=== PATIENT | male | born 1955 | race Two or more races ===

== ENCOUNTER 2018-07-19 13:41 | Inpatient (IN) | payer MEDICAID ==
[~2018-07-19] VITALS: Ht 167.6 cm; Wt 99.8 kg
[2018-07-19 15:25] LABS: CHLORIDE 107 mEq/L (98-107)
[2018-07-19 15:27] LABS: PARTIAL THROMBOPLASTIN TIME 26.8 sec (23.4-31.0); PROTHROMBIN TIME 10.1 sec (9.1-11.1)
[2018-07-19 15:29] LABS: ETHANOL BLOOD < 10 mg/dL
[2018-07-19 15:31] LABS: BASOPHILS % 0.4 % (0.0-2.0); EOSINOPHILS % 3.6 % (0.0-5.0); HEMATOCRIT. 40.6 % (42.0-52.0); HEMOGLOBIN. 13.9 g/dL (14.0-18.0); LYMPHOCYTES % 29.4 % (20.0-50.0); MEAN CORPUSCULAR HEMOGLOBIN 30.6 pg (28.0-32.0); MEAN CORPUSCULAR VOLUME 89.3 fL (80.0-94.0); MEAN PLATELET VOLUME 12.2 fl (7.4-10.4); MONOCYTES % 8.6 % (2.0-8.0); PLATELET 127 x1000/uL (130-400); RED BLOOD CELL COUNT 4.54 mill/uL (4.7-6.1); RED CELL DISTRIBUTION WIDTH 13.9 % (11.6-14.6)
[2018-07-19 15:34] LABS: LDL CHOLESTEROL 104 mg/dL (5-100)
[2018-07-19 15:35] LABS: CREATINE KINASE 163 IU/L (39-308)
[2018-07-19] MEDS ORDERED: CLOPIDOGREL 75MG TABLET PO ONE (16:15)
[2018-07-19] MEDS ORDERED: ASPIRIN 81MG TABLET PO ONE (16:45)
[2018-07-19] MEDS ORDERED: IOHEXOL-350 100 ML BOTTLE ONE (17:35)
[2018-07-19] MEDS ORDERED: AMLO10TA80 MT (18:12)
[2018-07-19] MEDS ORDERED: FURO20TA4 MT (18:12)
[2018-07-19] MEDS ORDERED: INDO50CA15 MT (18:12)
[2018-07-19] MEDS ORDERED: BACL20TA MT (18:12)
[2018-07-19] MEDS ORDERED: IBUP-2029 PO (18:12)
[2018-07-19] MEDS ORDERED: ASPI-1159 MT (18:12)
[2018-07-19] MEDS ORDERED: LORA10TA7 MT (18:12)
[2018-07-19] MEDS ORDERED: PROVENTIL (18:12)
[2018-07-19 21:22] VITALS: BP 156/103
[2018-07-19 21:50] VITALS: BP 156/103
[2018-07-19] MEDS ORDERED: CLONIDINE 0.1MG TABLET PO PRN (22:15)
[2018-07-19] MEDS ORDERED: DOCUSATE SODIUM 100MG CAPSULE PO PRN (22:15)
[2018-07-19] MEDS ORDERED: MAGNESIUM/ALUMINUM HYDROXIDE/SIMETHICONE 30ML UDC PO PRN (22:15)
[2018-07-19] MEDS ORDERED: IPRATROPIUM/ALBUTEROL 0.5-3(2.5)MG/3ML NEB INH PRN (22:15)
[2018-07-19] MEDS ORDERED: ONDANSETRON HCL 4MG/2ML INJ IV PRN (22:15)
[2018-07-19] MEDS ORDERED: HYDROCODONE/ACETAMINOPHEN 5/325MG TABLET PO PRN (22:15)
[2018-07-19] MEDS: METOPROLOL TARTRATE 25MG TABLET PO SCH (23:24)
[2018-07-20] VITALS: BP 145/98
[2018-07-20 00:19] LABS: CHLORIDE 105 mEq/L (98-107)
[2018-07-20] MEDS ORDERED: POTASSIUM CHLORIDE 20MEQ TABLET SR PO NR (00:45)
[2018-07-20 04:00] VITALS: BP 139/97
[2018-07-20] MEDS ORDERED: DEXTROSE 50% WATER 50ML SYRINGE IV PRN (05:00)
[2018-07-20] MEDS: BLOOD SUGAR DIAGNOSTIC STRIP TEST SCH ×4 (06:30→20:16)
[2018-07-20] MEDS: INSULIN LISPRO 100 UNITS/ML SUBCUT SCH ×4 (07:50→20:16)
[2018-07-20 08:00] VITALS: BP 118/82
[2018-07-20 08:38] LABS: LDL CHOLESTEROL 113 mg/dL (5-100)
[2018-07-20 08:40] LABS: CREATINE KINASE 118 IU/L (39-308); HDL CHOLESTEROL 40 mg/dL (40-59)
[2018-07-20 08:42] LABS: CREATINE KINASE MB FRACTION 1.4 ng/mL (0.5-3.6)
[2018-07-20] MEDS: ENOXAPARIN 30MG/0.3ML SYR SUBCUT SCH ×2 (08:53→20:15)
[2018-07-20] MEDS: METOPROLOL TARTRATE 25MG TABLET PO SCH ×2 (08:55→20:16)
[2018-07-20] MEDS ORDERED: ASPIRIN 81MG EC TABLET PO SCH (09:00)
[2018-07-20 09:47] LABS: BASOPHILS % 0.5 % (0.0-2.0); HEMATOCRIT. 40.7 % (42.0-52.0); HEMOGLOBIN. 13.7 g/dL (14.0-18.0); LYMPHOCYTES % 28.3 % (20.0-50.0); MEAN CORPUSCULAR HEMOGLOBIN 29.9 pg (28.0-32.0); MEAN CORPUSCULAR VOLUME 89.1 fL (80.0-94.0); MEAN PLATELET VOLUME 11.2 fl (7.4-10.4); MONOCYTES % 7.8 % (2.0-8.0); NEUTROPHILS % 59.4 % (40.0-76.0); PLATELET 142 x1000/uL (130-400); RED BLOOD CELL COUNT 4.57 mill/uL (4.7-6.1)
[2018-07-20 12:47] VITALS: BP 124/77
[2018-07-20 16:40] VITALS: BP 128/66
[2018-07-20 16:57] LABS: CREATINE KINASE 104 IU/L (39-308)
[2018-07-20 16:59] LABS: CREATINE KINASE MB FRACTION < 1.0 ng/mL (0.5-3.6)
[2018-07-20 20:04] VITALS: BP 156/91
[2018-07-20 20:21] LABS: T4 FREE 1.17 ng/dL (0.76-1.46)
[2018-07-20] MEDS: ACETAMINOPHEN 325MG TABLET PO PRN (20:45)
[2018-07-20 20:50] LABS: VITAMIN B12 SERUM 437 pg/mL (211-911)
[2018-07-20 20:55] LABS: FOLIC ACID (FOLATE) SERUM > 20.00 ng/mL (>5.38)
[2018-07-21 00:33] VITALS: BP 148/90
[2018-07-21 04:00] VITALS: BP 140/87
[2018-07-21] MEDS: BLOOD SUGAR DIAGNOSTIC STRIP TEST SCH ×4 (06:36→20:43)
[2018-07-21] MEDS: INSULIN LISPRO 100 UNITS/ML SUBCUT SCH ×4 (07:37→20:47)
[2018-07-21 07:44] LABS: BASOPHILS % 0.6 % (0.0-2.0); EOSINOPHILS % 4.8 % (0.0-5.0); HEMATOCRIT. 40.4 % (42.0-52.0); HEMOGLOBIN. 13.8 g/dL (14.0-18.0); LYMPHOCYTES % 32.9 % (20.0-50.0); MEAN CORPUSCULAR HEMOGLOBIN 30.2 pg (28.0-32.0); MEAN CORPUSCULAR VOLUME 88.6 fL (80.0-94.0); MEAN PLATELET VOLUME 11.4 fl (7.4-10.4); MONOCYTES % 8.2 % (2.0-8.0); NEUTROPHILS % 53.5 % (40.0-76.0); PLATELET 148 x1000/uL (130-400); RED BLOOD CELL COUNT 4.56 mill/uL (4.7-6.1); RED CELL DISTRIBUTION WIDTH 13.8 % (11.6-14.6)
[2018-07-21 08:00] VITALS: BP 142/93
[2018-07-21 08:00] LABS: CHLORIDE 106 mEq/L (98-107)
[2018-07-21] MEDS: ASPIRIN 325MG EC TABLET PO SCH (08:19)
[2018-07-21] MEDS: METOPROLOL TARTRATE 25MG TABLET PO SCH ×2 (08:19→20:47)
[2018-07-21] MEDS: ENOXAPARIN 30MG/0.3ML SYR SUBCUT SCH ×2 (08:20→20:47)
[2018-07-21 16:28] LABS: T4 FREE 1.23 ng/dL (0.76-1.46)
[2018-07-21 20:00] VITALS: BP 108/58
[2018-07-21] MEDS: ACETAMINOPHEN 325MG TABLET PO PRN (20:46)
[2018-07-21 23:55] LABS: CREATINE KINASE 76 IU/L (39-308)
[2018-07-21 23:56] LABS: CREATINE KINASE MB FRACTION < 1.0 ng/mL (0.5-3.6)
[2018-07-22] VITALS: BP 157/92
[2018-07-22 04:00] VITALS: BP 130/84
[2018-07-22] MEDS: BLOOD SUGAR DIAGNOSTIC STRIP TEST SCH ×2 (06:27→12:05)
[2018-07-22 06:38] LABS: BASOPHILS % 0.6 % (0.0-2.0); HEMATOCRIT. 40.5 % (42.0-52.0); HEMOGLOBIN. 13.9 g/dL (14.0-18.0); LYMPHOCYTES % 33.5 % (20.0-50.0); MEAN CORPUSCULAR HEMOGLOBIN 30.4 pg (28.0-32.0); MEAN CORPUSCULAR VOLUME 88.2 fL (80.0-94.0); MEAN PLATELET VOLUME 12.1 fl (7.4-10.4); MONOCYTES % 8.2 % (2.0-8.0); NEUTROPHILS % 53.7 % (40.0-76.0); PLATELET 146 x1000/uL (130-400); RED BLOOD CELL COUNT 4.59 mill/uL (4.7-6.1); RED CELL DISTRIBUTION WIDTH 13.9 % (11.6-14.6)
[2018-07-22 07:29] LABS: CHLORIDE 106 mEq/L (98-107)
[2018-07-22 07:40] LABS: CREATINE KINASE 71 IU/L (39-308)
[2018-07-22 07:42] LABS: CREATINE KINASE MB FRACTION < 1.0 ng/mL (0.5-3.6)
[2018-07-22] MEDS: INSULIN LISPRO 100 UNITS/ML SUBCUT SCH ×2 (07:50→12:05)
[2018-07-22 08:03] VITALS: BP 134/77
[2018-07-22] MEDS: ASPIRIN 325MG EC TABLET PO SCH (08:56)
[2018-07-22] MEDS: ENOXAPARIN 30MG/0.3ML SYR SUBCUT SCH (08:58)
[2018-07-22] MEDS: METOPROLOL TARTRATE 25MG TABLET PO SCH (08:59)
[2018-07-22] MEDS ORDERED: ASPIRIN 81MG TABLET PO SCH (09:00)
[2018-07-22] MEDS ORDERED: POTASSIUM CHLORIDE 20MEQ TABLET SR PO NR (12:00)
[2018-07-22 12:35] VITALS: BP 151/92
[2018-07-22 13:19] VITALS: BP 148/89
== END 2018-07-22 16:30 | disposition home or self-care (01) | DRG 48 ==
LOC: ER 13:41 → 6WST 18:06 → EDBEDREQTM 18:08 → EDBEDREQSVC 18:08 → EDBEDREQ 18:08 → ENRESERV 19:00
PROVIDERS: ADMIT Internal Medicine; ATTEND Internal Medicine
DX: G90.8 Other disorders of autonomic nervous system (principal); G91.2 (Idiopathic) normal pressure hydrocephalus; G93.89 Other specified disorders of brain; G45.9 Transient cerebral ischemic attack, unspecified; M48.02 Spinal stenosis, cervical region; I11.0 Hypertensive heart disease with heart failure; I50.9 Heart failure, unspecified; I48.91 Unspecified atrial fibrillation; G56.00 Carpal tunnel syndrome, unspecified upper limb; E11.9 Type 2 diabetes mellitus without complications; E66.9 Obesity, unspecified; M47.812 Spondylosis without myelopathy or radiculopathy, cervical region; Z60.2 Problems related to living alone; Z86.79 Personal history of other diseases of the circulatory system; Z87.891 Personal history of nicotine dependence; Z79.82 Long term (current) use of aspirin; Z79.899 Other long term (current) drug therapy; Z68.35 Body mass index [BMI] 35.0-35.9, adult
CPT/HCPCS: 36415; 70496; 70498; 70551; 71045; 72141; 80048; 80061; 82550; 82553; 82607; 82746; 82962; 83036; 83721; 83735; 83880; 84439; 84443; 84481; 84484; 85379; 92610; 93005; 93306; 93880; 93970; 97162; 97166; 99291; G0482; J1650; Q9967

== ENCOUNTER 2019-02-20 11:31 | Emergency (ER) | payer MEDICAID ==
[~2019-02-20] VITALS: Ht 165.1 cm; Wt 112.0 kg
[~2019-02-20 11:31] MED LIST: AMLO10TA80 MT; ASPI-1393 MT; BACL20TA MT; FURO20TA4 MT; IBUP-2029 PO; INDO50CA98 MT; LORA10TA7 MT; PROVENTIL
[2019-02-20 12:32] LABS: BASOPHILS % 0.4 % (0.0-2.0); EOSINOPHILS % 1.6 % (0.0-5.0); HEMATOCRIT. 42.8 % (42.0-52.0); HEMOGLOBIN. 14.4 g/dL (14.0-18.0); LYMPHOCYTES % 23.1 % (20.0-50.0); MEAN CORPUSCULAR HEMOGLOBIN 30.6 pg (28.0-32.0); MEAN CORPUSCULAR VOLUME 90.6 fL (80.0-94.0); MONOCYTES % 6.7 % (2.0-8.0); NEUTROPHILS % 68.2 % (40.0-76.0); PLATELET 88 x1000/uL (130-400); RED BLOOD CELL COUNT 4.72 mill/uL (4.7-6.1); RED CELL DISTRIBUTION WIDTH 13.6 % (11.6-14.6)
[2019-02-20 12:36] LABS: CHLORIDE 106 mEq/L (98-107); INR 1.1; PROTHROMBIN TIME 11.3 sec (9.6-11.0)
[2019-02-20 12:40] LABS: ETHANOL BLOOD < 10 mg/dL
[2019-02-20 12:52] LABS: CLARITY URINE CLEAR (CLEAR); COLOR URINE YELLOW (YELLOW); KETONES URINE NEGATIVE (NEGATIVE); LEUKOCYTE ESTERASE URINE NEGATIVE (NEGATIVE); NITRITE URINE NEGATIVE (NEGATIVE); OCCULT BLOOD URINE NEGATIVE (NEGATIVE); PH URINE 6.5 (4.5-8.0); PROTEIN URINE NEGATIVE (NEGATIVE); SPECIFIC GRAVITY URINE 1.008 (1.005-1.030); UROBILINOGEN URINE 0.2 E.U./dL (0.2-1.0)
[2019-02-20 13:12] LABS: *AMPHETAMINES SCREEN URINE NEGATIVE (NEGATIVE); *BARBITURATES SCREEN URINE NEGATIVE (NEGATIVE); *BENZODIAZEPINES SCREEN URINE NEGATIVE (NEGATIVE); *COCAINE SCREEN URINE NEGATIVE (NEGATIVE); CANNABINOID URINE SCREEN NEGATIVE (NEGATIVE)
[2019-02-20 13:13] LABS: METHADONE URINE SCREEN NEGATIVE (NEGATIVE); OPIATES URINE SCREEN NEGATIVE (NEGATIVE); PHENCYCLIDINE URINE SCREEN NEGATIVE (NEGATIVE)
[2019-02-20 21:45] VITALS: BP 179/96
[2019-02-21] MEDS ORDERED: CLONIDINE 0.1MG TABLET PO ONE (00:45)
== END 2019-02-21 00:30 | disposition home or self-care (01) ==
LOC: ER 11:31
DX: G91.9 Hydrocephalus, unspecified (principal); I10 Essential (primary) hypertension; I48.91 Unspecified atrial fibrillation; M10.9 Gout, unspecified; I71.9 Aortic aneurysm of unspecified site, without rupture; G89.29 Other chronic pain; M25.562 Pain in left knee; Z96.659 Presence of unspecified artificial knee joint
CPT/HCPCS: 36415; 70450; 80053; 80305; 80320; 81003; 84484; 85025; 85610; 99284; Z7610; G0480

== ENCOUNTER 2021-06-03 05:32 | Emergency (ER) | payer MEDICARE, MEDICAID ==
[~2021-06-03] VITALS: Ht 175.3 cm; Wt 100.0 kg
[~2021-06-03 05:32] MED LIST changes: -ASPI-1393 MT; +ASPI-1497 MT
[2021-06-03] MEDS ORDERED: MORPHINE SULFATE 4 MG/ML CPJ (NOT FOR IM USE) IV STA (05:46)
[2021-06-03 06:06] LABS: BASOPHILS % 0.3 % (0.0-2.0); EOSINOPHILS % 0.3 % (0.0-5.0); HEMATOCRIT. 40.2 % (42.0-52.0); HEMOGLOBIN. 13.5 g/dL (14.0-18.0); LYMPHOCYTES % 11.1 % (20.0-50.0); MEAN CORPUSCULAR HEMOGLOBIN 29.2 pg (28.0-32.0); MEAN CORPUSCULAR VOLUME 86.9 fL (80.0-94.0); MEAN PLATELET VOLUME 12.4 fl (7.4-10.4); MONOCYTES % 2.3 % (2.0-8.0); PLATELET 60 x1000/uL (130-400); RED BLOOD CELL COUNT 4.62 mill/uL (4.7-6.1); RED CELL DISTRIBUTION WIDTH 15.6 % (11.6-14.6)
[2021-06-03 06:13] LABS: CHLORIDE 101 mEq/L (98-107)
[2021-06-03 06:17] LABS: INR 1.1; PROTHROMBIN TIME 11.9 sec (9.6-11.0)
[2021-06-03] MEDS ORDERED: MORPHINE SULFATE 4 MG/ML CPJ (NOT FOR IM USE) IV ONE (08:30)
[2021-06-03 08:59] LABS: CLARITY URINE CLEAR (CLEAR); COLOR URINE YELLOW (YELLOW); KETONES URINE 2+ (NEGATIVE); LEUKOCYTE ESTERASE URINE NEGATIVE (NEGATIVE); NITRITE URINE NEGATIVE (NEGATIVE); OCCULT BLOOD URINE 3+ (NEGATIVE); PROTEIN URINE 3+ (NEGATIVE); SPECIFIC GRAVITY URINE 1.029 (1.005-1.030); UROBILINOGEN URINE 0.2 E.U./dL (0.2-1.0)
[2021-06-03] MEDS ORDERED: HYDR-4001 MT ×3 (10:51→10:55)
[2021-06-03] MEDS ORDERED: HYDRALAZINE HCL 10MG TABLET PO ONE (11:00)
[2021-06-03] MEDS ORDERED: IOHEXOL-350 100 ML BOTTLE ONE (13:54)
[2021-06-03 18:35] VITALS: BP 198/108
== END 2021-06-03 19:17 | disposition home or self-care (01) ==
LOC: ER 05:32
DX: I11.0 Hypertensive heart disease with heart failure (principal); I50.9 Heart failure, unspecified; Z86.79 Personal history of other diseases of the circulatory system
CPT/HCPCS: 36415; 74174; 74176; 80053; 81003; 83690; 85025; 85610; 93005; 96374; 96376; 99285; J2270; Q9967

== ENCOUNTER 2021-10-17 11:41 | Inpatient (IN) | payer MEDICARE, MEDICAID ==
[~2021-10-17] VITALS: Ht 165.1 cm; Wt 100.0 kg
[~2021-10-17 11:41] MED LIST changes: +HYDR-4001 MT
[2021-10-17] MEDS ORDERED: DILTIAZEM HCL 5MG/ML 5ML VIAL IV ONE (11:45)
[2021-10-17] MEDS ORDERED: SODIUM CHLORIDE 0.9% 500 ML IV ONE (12:15)
[2021-10-17] MEDS ORDERED: DIPHENHYDRAMINE 50MG/ML VIAL IV ONE (12:15)
[2021-10-17 12:17] LABS: BASOPHILS % 0.7 % (0.0-2.0); EOSINOPHILS % 1.6 % (0.0-5.0); HEMATOCRIT. 39.3 % (42.0-52.0); HEMOGLOBIN. 13.3 g/dL (14.0-18.0); MEAN CORPUSCULAR HEMOGLOBIN 29.2 pg (28.0-32.0); MEAN CORPUSCULAR VOLUME 86.4 fL (80.0-94.0); MEAN PLATELET VOLUME 13.7 fl (7.4-10.4); MONOCYTES % 7.5 % (2.0-8.0); NEUTROPHILS % 69.2 % (40.0-76.0); PLATELET 82 x1000/uL (130-400); RED BLOOD CELL COUNT 4.55 mill/uL (4.7-6.1); RED CELL DISTRIBUTION WIDTH 14.1 % (11.6-14.6)
[2021-10-17 12:31] LABS: CHLORIDE 102 mEq/L (98-107); INR 1.1; PARTIAL THROMBOPLASTIN TIME 32.1 sec (23.4-31.0); PROTHROMBIN TIME 12.1 sec (9.6-11.0)
[2021-10-17 12:38] LABS: ETHANOL BLOOD < 10 mg/dL
[2021-10-17 12:43] LABS: T4 FREE 1.51 ng/dL (0.76-1.46)
[2021-10-17] MEDS ORDERED: METOPROLOL TARTRATE 5MG/5ML VIAL IV ONE (12:45)
[2021-10-17 13:11] LABS: CLARITY URINE CLOUDY (CLEAR); COLOR URINE YELLOW (YELLOW); KETONES URINE NEGATIVE (NEGATIVE); LEUKOCYTE ESTERASE URINE NEGATIVE (NEGATIVE); NITRITE URINE NEGATIVE (NEGATIVE); OCCULT BLOOD URINE 3+ (NEGATIVE); PROTEIN URINE 2+ (NEGATIVE); SPECIFIC GRAVITY URINE 1.012 (1.005-1.030); UROBILINOGEN URINE 0.2 E.U./dL (0.2-1.0)
[2021-10-17 13:32] LABS: *AMPHETAMINES SCREEN URINE NEGATIVE (NEGATIVE); *BARBITURATES SCREEN URINE NEGATIVE (NEGATIVE); *BENZODIAZEPINES SCREEN URINE NEGATIVE (NEGATIVE); *COCAINE SCREEN URINE NEGATIVE (NEGATIVE); METHADONE URINE SCREEN NEGATIVE (NEGATIVE); OPIATES URINE SCREEN NEGATIVE (NEGATIVE)
[2021-10-17 13:33] LABS: CANNABINOID URINE SCREEN NEGATIVE (NEGATIVE); PHENCYCLIDINE URINE SCREEN NEGATIVE (NEGATIVE)
[2021-10-17] MEDS ORDERED: DIGOXIN 500MCG/2ML AMP IV SCH (13:45)
[2021-10-17] MEDS ORDERED: MAGNESIUM 2 G PREMIX 50 ML IV SCH (13:45)
[2021-10-17] MEDS ORDERED: FUROSEMIDE 40MG/4ML VIAL IVP SCH (13:45)
[2021-10-17] MEDS ORDERED: POTASSIUM CHLORIDE INJ 40 MEQ in DEXT 5% WATER 250 ML IV ONE (13:45)
[2021-10-17] MEDS: METOPROLOL TARTRATE 25MG TABLET PO SCH ×2 (14:00→20:21)
[2021-10-17] MEDS: KCL 20MEQ/100ML PREMIX 100 ML IV SCH ×2 (14:37→22:34)
[2021-10-17] MEDS: ASPIRIN 81MG TABLET PO SCH (14:58)
[2021-10-17] MEDS: MIDODRINE HCL 2.5MG TABLET PO SCH ×2 (14:59→22:00)
[2021-10-17] MEDS ORDERED: MAGNESIUM 2 G PREMIX 50 ML IV ONE (18:00)
[2021-10-17 18:29] VITALS: BP 144/53
[2021-10-17] MEDS: DIGOXIN 500MCG/2ML AMP IV SCH (19:28)
[2021-10-17] MEDS: APIXABAN 5 MG TABLET PO SCH (19:28)
[2021-10-17 19:51] VITALS: BP 119/61
[2021-10-17 20:00] VITALS: BP 119/61
[2021-10-17 22:11] VITALS: BP 141/70
[2021-10-17] MEDS ORDERED: METOPROLOL TARTRATE 25MG TABLET PO SCH (22:13)
[2021-10-17] MEDS ORDERED: MAGNESIUM 2 G PREMIX 50 ML IV NR (22:30)
[2021-10-17] MEDS ORDERED: ONDANSETRON HCL 4MG/2ML INJ IV PRN (23:00)
[2021-10-17 23:51] VITALS: BP 120/64
[2021-10-18] VITALS (11 sets, daily range): BP systolic 112–145; BP diastolic 63–79
[2021-10-18] MEDS ORDERED: DEXTROSE 50% WATER 50ML SYRINGE IV PRN (02:45)
[2021-10-18] MEDS: MIDODRINE HCL 2.5MG TABLET PO SCH ×3 (06:00→22:00)
[2021-10-18] MEDS ORDERED: METOPROLOL TARTRATE 25MG TABLET PO SCH (06:00)
[2021-10-18] MEDS: METOPROLOL TARTRATE 25MG TABLET PO SCH ×2 (06:09)
[2021-10-18] MEDS: BLOOD SUGAR DIAGNOSTIC STRIP TEST SCH ×4 (06:10→21:36)
[2021-10-18 06:40] LABS: BASOPHILS % 0.3 % (0.0-2.0); EOSINOPHILS % 1.9 % (0.0-5.0); HEMATOCRIT. 38.7 % (42.0-52.0); HEMOGLOBIN. 12.7 g/dL (14.0-18.0); LYMPHOCYTES % 18.6 % (20.0-50.0); MEAN CORPUSCULAR HEMOGLOBIN 28.6 pg (28.0-32.0); MEAN PLATELET VOLUME 13.1 fl (7.4-10.4); MONOCYTES % 6.4 % (2.0-8.0); NEUTROPHILS % 72.8 % (40.0-76.0); PLATELET 66 x1000/uL (130-400); RED BLOOD CELL COUNT 4.45 mill/uL (4.7-6.1)
[2021-10-18 07:17] LABS: CHLORIDE 106 mEq/L (98-107)
[2021-10-18] MEDS: INSULIN LISPRO 100 UNITS/ML SUBCUT SCH ×4 (07:20→21:00)
[2021-10-18] MEDS ORDERED: POTASSIUM CHLORIDE 20MEQ TABLET SR PO SCH (09:00)
[2021-10-18] MEDS ORDERED: INFLUENZA VACCINE 05/PF 0.5 ML SYRINGE IM ONE (09:00)
[2021-10-18] MEDS ORDERED: PNEUMOCOCCAL 23-VAL P-SAC VAC 0.5 ML IM ONE (09:00)
[2021-10-18] MEDS: ASPIRIN 81MG TABLET PO SCH (09:44)
[2021-10-18] MEDS: METOPROLOL TARTRATE 50MG TABLET PO SCH ×2 (11:21→17:15)
[2021-10-18] MEDS ORDERED: ALLO100T PO (13:34)
[2021-10-18] MEDS ORDERED: CARV6.2548 PO (13:35)
[2021-10-18] MEDS ORDERED: FURO40TA5 PO (13:36)
[2021-10-18] MEDS ORDERED: APIX5TAB PO (13:36)
[2021-10-18] MEDS ORDERED: ISOS30TA91 PO (13:38)
[2021-10-18] MEDS ORDERED: PROT40 PO (13:38)
[2021-10-18] MEDS ORDERED: POTA-189 PO (13:39)
[2021-10-18] MEDS ORDERED: METF-416 PO (13:40)
[2021-10-18] MEDS ORDERED: TERA10CA4 PO (13:41)
[2021-10-18] MEDS ORDERED: TOPUD PO (13:41)
[2021-10-18] MEDS ORDERED: BISA10SU62 RC (13:42)
[2021-10-18] MEDS ORDERED: DOCU-150 PO (13:43)
[2021-10-18] MEDS ORDERED: HYDR-4001 PO (13:45)
[2021-10-18] MEDS ORDERED: MOM PO (13:48)
[2021-10-18] MEDS ORDERED: TRAM50TA3 PO (13:49)
[2021-10-18] MEDS ORDERED: HYDR-4134 PO (13:51)
[2021-10-18] MEDS ORDERED: INDO50CA98 PO (13:52)
[2021-10-18] MEDS ORDERED: DIGOXIN 500MCG/2ML AMP IV NR (15:45)
[2021-10-18] MEDS: DIGOXIN 500MCG/2ML AMP IV SCH (17:19)
[2021-10-19] VITALS (16 sets, daily range): BP systolic 111–142; BP diastolic 57–86
[2021-10-19] MEDS: METOPROLOL TARTRATE 50MG TABLET PO SCH ×5 (00:28→23:22)
[2021-10-19] MEDS: MIDODRINE HCL 2.5MG TABLET PO SCH ×3 (06:00→23:22)
[2021-10-19] MEDS: BLOOD SUGAR DIAGNOSTIC STRIP TEST SCH ×4 (06:12→20:21)
[2021-10-19 06:19] LABS: BASOPHILS % 0.4 % (0.0-2.0); EOSINOPHILS % 2.8 % (0.0-5.0); HEMATOCRIT. 39.4 % (42.0-52.0); HEMOGLOBIN. 12.9 g/dL (14.0-18.0); LYMPHOCYTES % 23.1 % (20.0-50.0); MEAN CORPUSCULAR HEMOGLOBIN 28.4 pg (28.0-32.0); MEAN CORPUSCULAR VOLUME 87.2 fL (80.0-94.0); MEAN PLATELET VOLUME 13.4 fl (7.4-10.4); MONOCYTES % 8.1 % (2.0-8.0); NEUTROPHILS % 65.6 % (40.0-76.0); PLATELET 61 x1000/uL (130-400); RED BLOOD CELL COUNT 4.52 mill/uL (4.7-6.1); RED CELL DISTRIBUTION WIDTH 14.2 % (11.6-14.6)
[2021-10-19 06:32] LABS: CHLORIDE 109 mEq/L (98-107)
[2021-10-19] MEDS: INSULIN LISPRO 100 UNITS/ML SUBCUT SCH ×4 (06:50→20:21)
[2021-10-19] MEDS: ASPIRIN 81MG TABLET PO SCH (08:28)
[2021-10-19] MEDS: DIGOXIN 250MCG TABLET PO SCH (17:15)
[2021-10-19] MEDS: ACETAMINOPHEN 325MG TABLET PO PRN (23:03)
[2021-10-20] VITALS (15 sets, daily range): BP systolic 116–150; BP diastolic 39–99
[2021-10-20] MEDS: METOPROLOL TARTRATE 50MG TABLET PO SCH ×3 (05:22→17:43)
[2021-10-20] MEDS: MIDODRINE HCL 2.5MG TABLET PO SCH (06:00)
[2021-10-20] MEDS: BLOOD SUGAR DIAGNOSTIC STRIP TEST SCH ×4 (06:11→20:34)
[2021-10-20 06:12] LABS: CHLORIDE 110 mEq/L (98-107)
[2021-10-20 06:16] LABS: BASOPHILS % 0.4 % (0.0-2.0); EOSINOPHILS % 2.6 % (0.0-5.0); HEMATOCRIT. 40.1 % (42.0-52.0); HEMOGLOBIN. 13.2 g/dL (14.0-18.0); LYMPHOCYTES % 17.6 % (20.0-50.0); MEAN CORPUSCULAR HEMOGLOBIN 28.7 pg (28.0-32.0); MEAN CORPUSCULAR VOLUME 87.3 fL (80.0-94.0); MEAN PLATELET VOLUME 13.3 fl (7.4-10.4); MONOCYTES % 8.1 % (2.0-8.0); NEUTROPHILS % 71.3 % (40.0-76.0); RED BLOOD CELL COUNT 4.59 mill/uL (4.7-6.1); RED CELL DISTRIBUTION WIDTH 13.9 % (11.6-14.6)
[2021-10-20 06:32] LABS: DIGOXIN 0.9 ng/mL (0.9-2.0)
[2021-10-20] MEDS: INSULIN LISPRO 100 UNITS/ML SUBCUT SCH ×4 (07:20→20:35)
[2021-10-20] MEDS ORDERED: POTASSIUM CHLORIDE 20MEQ TABLET SR PO NR (09:00)
[2021-10-20] MEDS: ASPIRIN 81MG TABLET PO SCH (09:50)
[2021-10-20 10:02] LABS: PLATELET 58 x1000/uL (130-400)
[2021-10-20] MEDS: DIGOXIN 250MCG TABLET PO SCH (17:43)
[2021-10-20] MEDS: APIXABAN 5 MG TABLET PO SCH (17:43)
[2021-10-20] MEDS: ACETAMINOPHEN 325MG TABLET PO PRN (22:09)
[2021-10-21] VITALS (13 sets, daily range): BP systolic 114–158; BP diastolic 57–91
[2021-10-21] MEDS: METOPROLOL TARTRATE 50MG TABLET PO SCH ×2 (05:51)
[2021-10-21] MEDS: BLOOD SUGAR DIAGNOSTIC STRIP TEST SCH ×4 (05:51→20:35)
[2021-10-21 06:49] LABS: CHLORIDE 110 mEq/L (98-107)
[2021-10-21 06:58] LABS: BASOPHILS % 0.3 % (0.0-2.0); EOSINOPHILS % 1.8 % (0.0-5.0); HEMATOCRIT. 38.4 % (42.0-52.0); HEMOGLOBIN. 12.8 g/dL (14.0-18.0); LYMPHOCYTES % 18.5 % (20.0-50.0); MEAN CORPUSCULAR VOLUME 86.7 fL (80.0-94.0); MONOCYTES % 8.5 % (2.0-8.0); NEUTROPHILS % 70.9 % (40.0-76.0); RED BLOOD CELL COUNT 4.42 mill/uL (4.7-6.1); RED CELL DISTRIBUTION WIDTH 14.1 % (11.6-14.6)
[2021-10-21] MEDS: INSULIN LISPRO 100 UNITS/ML SUBCUT SCH ×4 (07:20→20:35)
[2021-10-21] MEDS ORDERED: IODIXANOL 320MG/ML 100 ML BOTTLE IV ONE (07:56)
[2021-10-21] MEDS ORDERED: GENTAMICIN SULF 40MG/ML 2ML VIAL ONE (07:56)
[2021-10-21] MEDS ORDERED: LIDOCAINE HCL 1% 30ML VIAL (10MG/ML) ONE (07:56)
[2021-10-21] MEDS ORDERED: GENTAMICIN/NS IRRIGATION 0 ML IR ONE (07:56)
[2021-10-21] MEDS ORDERED: CEFAZOLIN 1000MG PREMIX 0 ML IV ONE (08:12)
[2021-10-21] MEDS ORDERED: POTASSIUM CHLORIDE 20MEQ TABLET SR PO NR (09:07)
[2021-10-21] MEDS: APIXABAN 5 MG TABLET PO SCH ×2 (09:09→17:22)
[2021-10-21] MEDS: ASPIRIN 81MG TABLET PO SCH (09:09)
[2021-10-21 10:21] LABS: PLATELET 60 x1000/uL (130-400)
[2021-10-21 10:22] LABS: MEAN PLATELET VOLUME 13.8 fl (7.4-10.4)
[2021-10-21] MEDS: CARVEDILOL 6.25 MG TABLET PO SCH ×2 (10:46→22:39)
[2021-10-21] MEDS ORDERED: AMIODARONE HCL 900 MG in DEXT 5% WATER 482 ML IV SCH (15:00)
[2021-10-21] MEDS ORDERED: AMIODARONE HCL 150 MG in DEXT 5% WATER 100 ML IV SCH (15:00)
[2021-10-21] MEDS ORDERED: DIGOXIN 125MCG TABLET PO SCH (18:00)
[2021-10-21] MEDS ORDERED: COLCHICINE 0.6MG TABLET PO NR ×2 (20:15→21:15)
[2021-10-21] MEDS ORDERED: NALOXONE HCL 0.4MG/ML VIAL IV PRN (20:15)
[2021-10-21] MEDS: POTASSIUM CHLORIDE 20MEQ TABLET SR PO SCH (20:30)
[2021-10-22] VITALS (11 sets, daily range): BP systolic 112–168; BP diastolic 60–106
[2021-10-22] MEDS: HYDROCODONE/ACETAMINOPHEN 5/325MG TABLET PO PRN (04:33)
[2021-10-22] MEDS: BLOOD SUGAR DIAGNOSTIC STRIP TEST SCH ×4 (05:53→21:00)
[2021-10-22] MEDS: INSULIN LISPRO 100 UNITS/ML SUBCUT SCH ×4 (07:20→21:00)
[2021-10-22 08:35] LABS: BASOPHILS % 0.3 % (0.0-2.0); EOSINOPHILS % 2.7 % (0.0-5.0); HEMATOCRIT. 36.3 % (42.0-52.0); HEMOGLOBIN. 12.3 g/dL (14.0-18.0); MEAN CORPUSCULAR HEMOGLOBIN 29.3 pg (28.0-32.0); MEAN CORPUSCULAR VOLUME 86.7 fL (80.0-94.0); MONOCYTES % 7.6 % (2.0-8.0); NEUTROPHILS % 69.4 % (40.0-76.0); RED BLOOD CELL COUNT 4.19 mill/uL (4.7-6.1); RED CELL DISTRIBUTION WIDTH 14.2 % (11.6-14.6)
[2021-10-22 08:37] LABS: CHLORIDE 110 mEq/L (98-107)
[2021-10-22] MEDS: POLYETHYLENE GLYCOL 3350 (17GM) 1 DOSE PACK PO SCH (09:00)
[2021-10-22 09:03] LABS: DIGOXIN 0.7 ng/mL (0.9-2.0)
[2021-10-22] MEDS: APIXABAN 5 MG TABLET PO SCH ×2 (09:19→18:34)
[2021-10-22] MEDS: COLCHICINE 0.6MG TABLET PO SCH (09:19)
[2021-10-22] MEDS: POTASSIUM CHLORIDE 20MEQ TABLET SR PO SCH (09:19)
[2021-10-22] MEDS: CARVEDILOL 6.25 MG TABLET PO SCH ×2 (09:20→20:47)
[2021-10-22] MEDS: ASPIRIN 81MG TABLET PO SCH (09:26)
[2021-10-22 11:21] LABS: MEAN PLATELET VOLUME 13.4 fl (7.4-10.4); PLATELET 52 x1000/uL (130-400)
[2021-10-22] MEDS ORDERED: DIGOXIN 500MCG/2ML AMP IV NR (22:15)
[2021-10-22] MEDS: METOPROLOL SUCCINATE 50MG ER TABLET PO SCH (22:36)
[2021-10-23] VITALS (11 sets, daily range): BP systolic 128–162; BP diastolic 57–93
[2021-10-23] MEDS: INSULIN LISPRO 100 UNITS/ML SUBCUT SCH ×4 (06:36→21:59)
[2021-10-23] MEDS: BLOOD SUGAR DIAGNOSTIC STRIP TEST SCH ×4 (06:36→21:00)
[2021-10-23 07:21] LABS: BASOPHILS % 0.4 % (0.0-2.0); EOSINOPHILS % 2.8 % (0.0-5.0); HEMATOCRIT. 38.3 % (42.0-52.0); HEMOGLOBIN. 12.8 g/dL (14.0-18.0); LYMPHOCYTES % 19.1 % (20.0-50.0); MEAN CORPUSCULAR HEMOGLOBIN 29.3 pg (28.0-32.0); MEAN CORPUSCULAR VOLUME 87.6 fL (80.0-94.0); MONOCYTES % 8.8 % (2.0-8.0); NEUTROPHILS % 68.9 % (40.0-76.0); PLATELET 68 x1000/uL (130-400); RED BLOOD CELL COUNT 4.37 mill/uL (4.7-6.1); RED CELL DISTRIBUTION WIDTH 14.3 % (11.6-14.6)
[2021-10-23 07:33] LABS: CHLORIDE 109 mEq/L (98-107)
[2021-10-23] MEDS: POLYETHYLENE GLYCOL 3350 (17GM) 1 DOSE PACK PO SCH (08:01)
[2021-10-23] MEDS: POTASSIUM CHLORIDE 20MEQ TABLET SR PO SCH (08:55)
[2021-10-23] MEDS: ASPIRIN 81MG TABLET PO SCH (08:55)
[2021-10-23] MEDS: APIXABAN 5 MG TABLET PO SCH ×2 (08:55→18:02)
[2021-10-23] MEDS: COLCHICINE 0.6MG TABLET PO SCH (08:55)
[2021-10-23] MEDS: METOPROLOL SUCCINATE 50MG ER TABLET PO SCH (08:56)
[2021-10-23] MEDS: METOPROLOL TARTRATE 50MG TABLET PO SCH ×2 (14:47→17:30)
[2021-10-23] MEDS ORDERED: METOPROLOL SUCCINATE 50MG ER TABLET PO SCH (15:00)
[2021-10-24] VITALS (11 sets, daily range): BP systolic 131–168; BP diastolic 58–103
[2021-10-24] MEDS: METOPROLOL TARTRATE 50MG TABLET PO SCH ×4 (06:00→17:44)
[2021-10-24] MEDS: BLOOD SUGAR DIAGNOSTIC STRIP TEST SCH ×4 (06:03→21:44)
[2021-10-24] MEDS: INSULIN LISPRO 100 UNITS/ML SUBCUT SCH ×4 (07:21→21:00)
[2021-10-24] MEDS ORDERED: REGADENOSON 0.4 MG/5 ML IV ONE ×2 (08:30→08:53)
[2021-10-24] MEDS: POLYETHYLENE GLYCOL 3350 (17GM) 1 DOSE PACK PO SCH (09:22)
[2021-10-24] MEDS: APIXABAN 5 MG TABLET PO SCH ×2 (09:22→17:44)
[2021-10-24] MEDS: POTASSIUM CHLORIDE 20MEQ TABLET SR PO SCH (09:22)
[2021-10-24] MEDS: HYDRALAZINE HCL 25MG TABLET PO PRN ×2 (12:08→21:53)
[2021-10-24] MEDS: COLCHICINE 0.6MG TABLET PO SCH (12:09)
[2021-10-24] MEDS: ASPIRIN 81MG TABLET PO SCH (12:09)
[2021-10-24 18:00] LABS: HEMOGLOBIN 12.8 g/dL (14.0-18.0); MEAN CORPUSCULAR HEMOGLOBIN 29.4 pg (28.0-32.0); MEAN CORPUSCULAR VOLUME 87.3 fL (80.0-94.0); PLATELET 65 x1000/uL (130-400); RED BLOOD CELL COUNT 4.35 mill/uL (4.7-6.1); RED CELL DISTRIBUTION WIDTH 14.2 % (11.6-14.6)
[2021-10-24 18:57] LABS: CHLORIDE 110 mEq/L (98-107)
[2021-10-25] VITALS (30 sets, daily range): BP systolic 108–167; BP diastolic 36–104
[2021-10-25] MEDS: METOPROLOL TARTRATE 50MG TABLET PO SCH ×2 (04:41)
[2021-10-25] MEDS ORDERED: METOPROLOL TARTRATE 5MG/5ML VIAL IV NR (05:15)
[2021-10-25] MEDS: BLOOD SUGAR DIAGNOSTIC STRIP TEST SCH ×3 (06:50→17:14)
[2021-10-25] MEDS: INSULIN LISPRO 100 UNITS/ML SUBCUT SCH ×4 (07:20→21:00)
[2021-10-25] MEDS: POTASSIUM CHLORIDE 20MEQ TABLET SR PO SCH (09:12)
[2021-10-25] MEDS: COLCHICINE 0.6MG TABLET PO SCH (09:12)
[2021-10-25] MEDS: APIXABAN 5 MG TABLET PO SCH ×2 (09:12→17:00)
[2021-10-25] MEDS: ASPIRIN 81MG TABLET PO SCH (09:12)
[2021-10-25] MEDS: POLYETHYLENE GLYCOL 3350 (17GM) 1 DOSE PACK PO SCH (09:13)
[2021-10-25 13:30] LABS: CHLORIDE 107 mEq/L (98-107)
[2021-10-25] MEDS ORDERED: FUROSEMIDE 40MG/4ML VIAL IVP SCH (14:15)
[2021-10-25] MEDS: ESMOLOL 2500MG PREMIX 250 ML IV PRN ×2 (18:03→20:00)
[2021-10-26] VITALS (89 sets, daily range): BP systolic 92–196; BP diastolic 22–140
[2021-10-26] MEDS: HYDRALAZINE HCL 25MG TABLET PO PRN ×2 (01:10→18:50)
[2021-10-26 05:28] LABS: BASOPHILS % 0.3 % (0.0-2.0); EOSINOPHILS % 3.6 % (0.0-5.0); HEMATOCRIT. 37.8 % (42.0-52.0); HEMOGLOBIN. 12.6 g/dL (14.0-18.0); LYMPHOCYTES % 26.7 % (20.0-50.0); MEAN CORPUSCULAR HEMOGLOBIN 29.1 pg (28.0-32.0); MEAN CORPUSCULAR VOLUME 87.1 fL (80.0-94.0); MEAN PLATELET VOLUME 12.8 fl (7.4-10.4); MONOCYTES % 7.9 % (2.0-8.0); NEUTROPHILS % 61.5 % (40.0-76.0); PLATELET 71 x1000/uL (130-400); RED BLOOD CELL COUNT 4.33 mill/uL (4.7-6.1)
[2021-10-26 06:08] LABS: CHLORIDE 109 mEq/L (98-107)
[2021-10-26] MEDS: ESMOLOL 2500MG PREMIX 250 ML IV PRN (08:03)
[2021-10-26] MEDS: APIXABAN 5 MG TABLET PO SCH ×2 (09:00→16:49)
[2021-10-26] MEDS: ASPIRIN 81MG TABLET PO SCH (09:00)
[2021-10-26] MEDS: POLYETHYLENE GLYCOL 3350 (17GM) 1 DOSE PACK PO SCH (09:14)
[2021-10-26] MEDS: COLCHICINE 0.6MG TABLET PO SCH (09:14)
[2021-10-26] MEDS: POTASSIUM CHLORIDE 20MEQ TABLET SR PO SCH (09:14)
[2021-10-26] MEDS: HYDROCODONE/ACETAMINOPHEN 5/325MG TABLET PO PRN (13:35)
[2021-10-26 15:35] LABS: HEPATITIS B SURFACE ANTIGEN NEGATIVE
[2021-10-26] MEDS: INSULIN LISPRO 100 UNITS/ML SUBCUT SCH (21:00)
[2021-10-26] MEDS: BLOOD SUGAR DIAGNOSTIC STRIP TEST SCH (21:41)
[2021-10-26] MEDS ORDERED: FUROSEMIDE 40MG/4ML VIAL IVP SCH (22:15)
[2021-10-27] VITALS (71 sets, daily range): BP systolic 68–174; BP diastolic 24–124
[2021-10-27] MEDS: ESMOLOL 2500MG PREMIX 250 ML IV PRN ×2 (02:17→18:38)
[2021-10-27 05:58] LABS: CHLORIDE 108 mEq/L (98-107)
[2021-10-27 06:01] LABS: BASOPHILS % 0.3 % (0.0-2.0); EOSINOPHILS % 4.5 % (0.0-5.0); HEMATOCRIT. 37.8 % (42.0-52.0); HEMOGLOBIN. 12.6 g/dL (14.0-18.0); LYMPHOCYTES % 24.2 % (20.0-50.0); MEAN CORPUSCULAR HEMOGLOBIN 29.2 pg (28.0-32.0); MEAN CORPUSCULAR VOLUME 87.5 fL (80.0-94.0); MEAN PLATELET VOLUME 11.7 fl (7.4-10.4); MONOCYTES % 8.7 % (2.0-8.0); NEUTROPHILS % 62.3 % (40.0-76.0); PLATELET 69 x1000/uL (130-400); RED BLOOD CELL COUNT 4.32 mill/uL (4.7-6.1); RED CELL DISTRIBUTION WIDTH 13.9 % (11.6-14.6)
[2021-10-27 06:12] LABS: PROTHROMBIN TIME 11.1 sec (9.6-11.0)
[2021-10-27] MEDS ORDERED: LIDOCAINE HCL 1% 30ML VIAL (10MG/ML) ONE (06:29)
[2021-10-27] MEDS ORDERED: GENTAMICIN SULF 40MG/ML 2ML VIAL ONE (06:29)
[2021-10-27] MEDS ORDERED: GENTAMICIN/NS IRRIGATION 500 ML IR ONE (06:29)
[2021-10-27] MEDS ORDERED: IODIXANOL 320MG/ML 100 ML BOTTLE IV ONE (06:29)
[2021-10-27] MEDS ORDERED: CEFAZOLIN 1000MG PREMIX 100 ML IV ONE (06:30)
[2021-10-27] MEDS ORDERED: FENTANYL CITRATE/PF 50MCG/ML 2ML VIAL ONE (07:20)
[2021-10-27] MEDS ORDERED: MIDAZOLAM HCL 2 MG/2 ML VIAL ONE (07:20)
[2021-10-27] MEDS ORDERED: ONDANSETRON HCL 4MG/2ML INJ ONE (07:22)
[2021-10-27] MEDS ORDERED: DESMOPRESSIN ACETATE IVPB 26 MCG in SODIUM CHLORIDE 0.9% 50 ML IV NR (07:30)
[2021-10-27] MEDS: BLOOD SUGAR DIAGNOSTIC STRIP TEST SCH ×4 (07:31→21:29)
[2021-10-27] MEDS: INSULIN LISPRO 100 UNITS/ML SUBCUT SCH ×4 (07:32→21:29)
[2021-10-27] MEDS ORDERED: MEPERIDINE HCL/PF 25MG/ML CPJ IV PRN (07:45)
[2021-10-27] MEDS ORDERED: PROPOFOL 200MG/20ML VIAL IV ONE (07:45)
[2021-10-27] MEDS ORDERED: LABETALOL 5MG/ML SYR 20 MG/4 ML SYRINGE IV PRN (07:45)
[2021-10-27] MEDS ORDERED: ONDANSETRON HCL 4MG/2ML INJ IV PRN (07:45)
[2021-10-27] MEDS ORDERED: DEXAMETHASONE 4MG/ML 1ML VIAL ONE (07:45)
[2021-10-27] MEDS ORDERED: HYDROMORPHONE HCL/PF 2MG/ML CPJ IV PRN (07:45)
[2021-10-27] MEDS ORDERED: AMIODARONE HCL 900 MG in DEXT 5% WATER 500 ML IV SCH (08:15)
[2021-10-27] MEDS: APIXABAN 5 MG TABLET PO SCH ×2 (09:00→18:02)
[2021-10-27] MEDS: POTASSIUM CHLORIDE 20MEQ TABLET SR PO SCH (09:28)
[2021-10-27] MEDS: POLYETHYLENE GLYCOL 3350 (17GM) 1 DOSE PACK PO SCH (09:28)
[2021-10-27] MEDS: COLCHICINE 0.6MG TABLET PO SCH (09:28)
[2021-10-27] MEDS ORDERED: LOSARTAN POTASSIUM 25 MG TABLET PO SCH (10:30)
[2021-10-27] MEDS: ACETAMINOPHEN 325MG TABLET PO PRN (13:54)
[2021-10-27] MEDS: HYDROCODONE/ACETAMINOPHEN 5/325MG TABLET PO PRN (15:32)
[2021-10-27] MEDS: CARVEDILOL 3.125 MG TABLET PO SCH (21:13)
[2021-10-28] VITALS (41 sets, daily range): BP systolic 108–166; BP diastolic 70–115
[2021-10-28] MEDS: ACETAMINOPHEN 325MG TABLET PO PRN (00:21)
[2021-10-28 05:51] LABS: BASOPHILS % 0.1 % (0.0-2.0); EOSINOPHILS % 0.2 % (0.0-5.0); HEMATOCRIT. 34.6 % (42.0-52.0); HEMOGLOBIN. 11.7 g/dL (14.0-18.0); LYMPHOCYTES % 11.3 % (20.0-50.0); MEAN CORPUSCULAR HEMOGLOBIN 29.4 pg (28.0-32.0); MEAN PLATELET VOLUME 12.7 fl (7.4-10.4); NEUTROPHILS % 80.4 % (40.0-76.0); PLATELET 72 x1000/uL (130-400); RED BLOOD CELL COUNT 3.98 mill/uL (4.7-6.1); RED CELL DISTRIBUTION WIDTH 13.9 % (11.6-14.6)
[2021-10-28 06:01] LABS: CHLORIDE 107 mEq/L (98-107)
[2021-10-28] MEDS: BLOOD SUGAR DIAGNOSTIC STRIP TEST SCH ×4 (07:50→21:37)
[2021-10-28] MEDS: INSULIN LISPRO 100 UNITS/ML SUBCUT SCH ×4 (08:20→21:37)
[2021-10-28] MEDS: FUROSEMIDE 20MG TABLET PO SCH (09:38)
[2021-10-28] MEDS: POTASSIUM CHLORIDE 20MEQ TABLET SR PO SCH (09:38)
[2021-10-28] MEDS: CARVEDILOL 3.125 MG TABLET PO SCH ×2 (09:39→20:00)
[2021-10-28] MEDS: APIXABAN 5 MG TABLET PO SCH ×2 (09:39→17:30)
[2021-10-28] MEDS: COLCHICINE 0.6MG TABLET PO SCH (09:39)
[2021-10-28] MEDS: HYDROCODONE/ACETAMINOPHEN 5/325MG TABLET PO PRN ×2 (09:39→20:21)
[2021-10-28] MEDS: POLYETHYLENE GLYCOL 3350 (17GM) 1 DOSE PACK PO SCH (09:40)
[2021-10-28] MEDS: LOSARTAN POTASSIUM 50 MG TABLET PO SCH (09:46)
[2021-10-28] MEDS: AMIODARONE HCL 200 MG TABLET PO SCH (18:55)
[2021-10-28] MEDS ORDERED: METOPROLOL TARTRATE 25MG TABLET PO NR (20:00)
[2021-10-29] VITALS (11 sets, daily range): BP systolic 125–161; BP diastolic 33–99
[2021-10-29 04:08] LABS: ANTI-CARDIOLIPIN AB IGA < 9 APL U/mL (0-11); ANTI-CARDIOLIPIN AB IGG < 9 GPL U/mL (0-14); ANTI-CARDIOLIPIN AB IGM < 9 MPL U/mL (0-12)
[2021-10-29] MEDS: BLOOD SUGAR DIAGNOSTIC STRIP TEST SCH ×4 (06:11→20:39)
[2021-10-29] MEDS: INSULIN LISPRO 100 UNITS/ML SUBCUT SCH ×4 (07:20→20:40)
[2021-10-29 07:25] LABS: CHLORIDE 107 mEq/L (98-107)
[2021-10-29 07:43] LABS: BASOPHILS % 0.3 % (0.0-2.0); EOSINOPHILS % 1.7 % (0.0-5.0); HEMATOCRIT. 37.8 % (42.0-52.0); HEMOGLOBIN. 12.7 g/dL (14.0-18.0); LYMPHOCYTES % 22.5 % (20.0-50.0); MEAN CORPUSCULAR HEMOGLOBIN 29.1 pg (28.0-32.0); MEAN CORPUSCULAR VOLUME 86.6 fL (80.0-94.0); MEAN PLATELET VOLUME 12.8 fl (7.4-10.4); MONOCYTES % 8.4 % (2.0-8.0); NEUTROPHILS % 67.1 % (40.0-76.0); PLATELET 82 x1000/uL (130-400); RED BLOOD CELL COUNT 4.36 mill/uL (4.7-6.1); RED CELL DISTRIBUTION WIDTH 14.1 % (11.6-14.6)
[2021-10-29] MEDS: POLYETHYLENE GLYCOL 3350 (17GM) 1 DOSE PACK PO SCH (08:04)
[2021-10-29] MEDS: LOSARTAN POTASSIUM 50 MG TABLET PO SCH (08:04)
[2021-10-29] MEDS: AMIODARONE HCL 200 MG TABLET PO SCH ×2 (08:04→20:39)
[2021-10-29] MEDS: FUROSEMIDE 20MG TABLET PO SCH (08:04)
[2021-10-29] MEDS: APIXABAN 5 MG TABLET PO SCH ×2 (08:04→16:56)
[2021-10-29] MEDS: COLCHICINE 0.6MG TABLET PO SCH (08:04)
[2021-10-29] MEDS: CARVEDILOL 3.125 MG TABLET PO SCH ×2 (08:05→20:39)
[2021-10-29] MEDS: POTASSIUM CHLORIDE 20MEQ TABLET SR PO SCH (08:12)
[2021-10-29] MEDS: HYDROCODONE/ACETAMINOPHEN 5/325MG TABLET PO PRN ×2 (10:21→20:39)
[2021-10-29] MEDS: HYDRALAZINE HCL 25MG TABLET PO PRN (22:09)
[2021-10-30] VITALS (11 sets, daily range): BP systolic 135–163; BP diastolic 67–100
[2021-10-30] MEDS: INSULIN LISPRO 100 UNITS/ML SUBCUT SCH ×4 (06:44→21:00)
[2021-10-30] MEDS: BLOOD SUGAR DIAGNOSTIC STRIP TEST SCH ×4 (06:44→21:27)
[2021-10-30] MEDS: APIXABAN 5 MG TABLET PO SCH ×2 (09:41→17:29)
[2021-10-30] MEDS: POTASSIUM CHLORIDE 20MEQ TABLET SR PO SCH (09:41)
[2021-10-30] MEDS: COLCHICINE 0.6MG TABLET PO SCH (09:41)
[2021-10-30] MEDS: AMIODARONE HCL 200 MG TABLET PO SCH ×2 (09:42→21:27)
[2021-10-30] MEDS: CARVEDILOL 3.125 MG TABLET PO SCH ×2 (09:42→21:26)
[2021-10-30] MEDS: LOSARTAN POTASSIUM 50 MG TABLET PO SCH (09:42)
[2021-10-30] MEDS: POLYETHYLENE GLYCOL 3350 (17GM) 1 DOSE PACK PO SCH (09:42)
[2021-10-30] MEDS: FUROSEMIDE 20MG TABLET PO SCH (09:42)
[2021-10-30] MEDS: HYDRALAZINE HCL 25MG TABLET PO PRN (12:51)
[2021-10-30] MEDS: NEOMYCIN/BACITRACIN/POLYMYXIN OINT 14GM TOP SCH (21:27)
[2021-10-31] VITALS (12 sets, daily range): BP systolic 131–163; BP diastolic 75–101
[2021-10-31] MEDS: BLOOD SUGAR DIAGNOSTIC STRIP TEST SCH ×4 (06:54→21:13)
[2021-10-31] MEDS: INSULIN LISPRO 100 UNITS/ML SUBCUT SCH ×4 (06:55→21:23)
[2021-10-31] MEDS: CARVEDILOL 3.125 MG TABLET PO SCH ×2 (08:12→21:14)
[2021-10-31] MEDS: COLCHICINE 0.6MG TABLET PO SCH (08:12)
[2021-10-31] MEDS: LOSARTAN POTASSIUM 50 MG TABLET PO SCH (08:12)
[2021-10-31] MEDS: POLYETHYLENE GLYCOL 3350 (17GM) 1 DOSE PACK PO SCH ×2 (08:12→08:47)
[2021-10-31] MEDS: AMIODARONE HCL 200 MG TABLET PO SCH ×2 (08:13→21:13)
[2021-10-31] MEDS: FUROSEMIDE 20MG TABLET PO SCH (08:13)
[2021-10-31] MEDS: APIXABAN 5 MG TABLET PO SCH ×2 (08:13→17:06)
[2021-10-31] MEDS: POTASSIUM CHLORIDE 20MEQ TABLET SR PO SCH (08:13)
[2021-10-31] MEDS: NEOMYCIN/BACITRACIN/POLYMYXIN OINT 14GM TOP SCH ×2 (09:54→21:13)
[2021-11-01] VITALS (12 sets, daily range): BP systolic 120–161; BP diastolic 75–99
[2021-11-01] MEDS: BLOOD SUGAR DIAGNOSTIC STRIP TEST SCH ×4 (06:41→20:42)
[2021-11-01] MEDS: ACETAMINOPHEN 325MG TABLET PO PRN ×2 (06:44→20:48)
[2021-11-01] MEDS: HYDRALAZINE HCL 25MG TABLET PO PRN (06:44)
[2021-11-01] MEDS: INSULIN LISPRO 100 UNITS/ML SUBCUT SCH ×4 (06:50→20:42)
[2021-11-01] MEDS: CARVEDILOL 3.125 MG TABLET PO SCH ×2 (08:03→20:42)
[2021-11-01] MEDS: COLCHICINE 0.6MG TABLET PO SCH (08:03)
[2021-11-01] MEDS: AMIODARONE HCL 200 MG TABLET PO SCH ×2 (08:03→20:41)
[2021-11-01] MEDS: APIXABAN 5 MG TABLET PO SCH ×2 (08:03→16:08)
[2021-11-01] MEDS: FUROSEMIDE 20MG TABLET PO SCH (08:03)
[2021-11-01] MEDS: LOSARTAN POTASSIUM 50 MG TABLET PO SCH (08:03)
[2021-11-01] MEDS: POTASSIUM CHLORIDE 20MEQ TABLET SR PO SCH (08:03)
[2021-11-01] MEDS: POLYETHYLENE GLYCOL 3350 (17GM) 1 DOSE PACK PO SCH (08:04)
[2021-11-01] MEDS: NEOMYCIN/BACITRACIN/POLYMYXIN OINT 14GM TOP SCH ×2 (08:04→20:42)
[2021-11-02] VITALS (11 sets, daily range): BP systolic 134–159; BP diastolic 75–98
[2021-11-02] MEDS: BLOOD SUGAR DIAGNOSTIC STRIP TEST SCH ×4 (06:19→20:19)
[2021-11-02] MEDS: INSULIN LISPRO 100 UNITS/ML SUBCUT SCH ×4 (07:18→20:24)
[2021-11-02] MEDS: POLYETHYLENE GLYCOL 3350 (17GM) 1 DOSE PACK PO SCH ×2 (09:00→09:05)
[2021-11-02] MEDS: LOSARTAN POTASSIUM 50 MG TABLET PO SCH (09:05)
[2021-11-02] MEDS: COLCHICINE 0.6MG TABLET PO SCH (09:05)
[2021-11-02] MEDS: POTASSIUM CHLORIDE 20MEQ TABLET SR PO SCH (09:06)
[2021-11-02] MEDS: FUROSEMIDE 20MG TABLET PO SCH (09:06)
[2021-11-02] MEDS: CARVEDILOL 3.125 MG TABLET PO SCH ×2 (09:06→20:18)
[2021-11-02] MEDS: AMIODARONE HCL 200 MG TABLET PO SCH ×2 (09:06→20:18)
[2021-11-02] MEDS: NEOMYCIN/BACITRACIN/POLYMYXIN OINT 14GM TOP SCH ×2 (09:07→20:19)
[2021-11-02 13:44] LABS: HEMATOCRIT 39.1 % (42.0-52.0); HEMOGLOBIN 13.3 g/dL (14.0-18.0); MEAN CORPUSCULAR HEMOGLOBIN 29.2 pg (28.0-32.0); PLATELET 99 x1000/uL (130-400); RED BLOOD CELL COUNT 4.54 mill/uL (4.7-6.1); RED CELL DISTRIBUTION WIDTH 14.2 % (11.6-14.6)
[2021-11-02 13:53] LABS: CHLORIDE 108 mEq/L (98-107)
[2021-11-02] MEDS: APIXABAN 5 MG TABLET PO SCH ×2 (16:13→21:00)
[2021-11-02] MEDS: HYDRALAZINE HCL 25MG TABLET PO PRN (22:46)
[2021-11-03] VITALS: BP 148/101
[2021-11-03] MEDS ORDERED: LOSARTAN POTASSIUM 100 MG TABLET PO SCH (09:00)
== END 2021-11-03 00:34 | DRG 242 ==
LOC: ER 11:41 → EDBEDREQTM 11:56 → EDBEDREQ 11:56 → EDBEDREQSVC 11:56 → 3WST 12:35 → EDBEDREQ 13:13 → ENRESERV 16:09 → CVICU 10-25 09:44 → 3WST 10-28 18:30
PROVIDERS: ADMIT Internal Medicine; ATTEND Internal Medicine
PROC: 30233R1 Transfusion of Nonautologous Platelets into Peripheral Vein, Percutaneous Approach (ICD-10-PCS; 2021-10-26)
PROC: 4A023N6 Measurement of Cardiac Sampling and Pressure, Right Heart, Percutaneous Approach (ICD-10-PCS; principal; 2021-10-27)
PROC: 0JH607Z Insertion of Cardiac Resynchronization Pacemaker Pulse Generator into Chest Subcutaneous Tissue and Fascia, Open Approach (ICD-10-PCS; 2021-10-27)
PROC: 02H63JZ Insertion of Pacemaker Lead into Right Atrium, Percutaneous Approach (ICD-10-PCS; 2021-10-27)
PROC: 02HK3JZ Insertion of Pacemaker Lead into Right Ventricle, Percutaneous Approach (ICD-10-PCS; 2021-10-27)
PROC: B517YZZ Fluoroscopy of Left Subclavian Vein using Other Contrast (ICD-10-PCS; 2021-10-27)
DX: I49.5 Sick sinus syndrome (principal); I50.23 Acute on chronic systolic (congestive) heart failure; N17.9 Acute kidney failure, unspecified; I13.0 Hypertensive heart and chronic kidney disease with heart failure and stage 1 through stage 4 chronic kidney disease, or unspecified chronic kidney disease; D69.3 Immune thrombocytopenic purpura; I48.20 Chronic atrial fibrillation, unspecified; I44.7 Left bundle-branch block, unspecified; I42.9 Cardiomyopathy, unspecified; I42.8 Other cardiomyopathies; D64.9 Anemia, unspecified; D69.6 Thrombocytopenia, unspecified; E11.22 Type 2 diabetes mellitus with diabetic chronic kidney disease; E11.65 Type 2 diabetes mellitus with hyperglycemia; E83.42 Hypomagnesemia; E87.6 Hypokalemia; F32.A Depression, unspecified; G62.9 Polyneuropathy, unspecified; M10.9 Gout, unspecified; M19.90 Unspecified osteoarthritis, unspecified site; N18.9 Chronic kidney disease, unspecified; N40.0 Benign prostatic hyperplasia without lower urinary tract symptoms; I48.0 Paroxysmal atrial fibrillation; Z96.659 Presence of unspecified artificial knee joint; I34.0 Nonrheumatic mitral (valve) insufficiency; I27.21 Secondary pulmonary arterial hypertension; E66.01 Morbid (severe) obesity due to excess calories; G47.30 Sleep apnea, unspecified; D69.59 Other secondary thrombocytopenia; I25.10 Atherosclerotic heart disease of native coronary artery without angina pectoris; Z20.822 Contact with and (suspected) exposure to COVID-19; Z88.8 Allergy status to other drugs, medicaments and biological substances; Z79.891 Long term (current) use of opiate analgesic; Z79.899 Other long term (current) drug therapy; Z79.82 Long term (current) use of aspirin; Z82.49 Family history of ischemic heart disease and other diseases of the circulatory system; Z79.01 Long term (current) use of anticoagulants; Z87.891 Personal history of nicotine dependence; Z68.36 Body mass index [BMI] 36.0-36.9, adult; Z95.810 Presence of automatic (implantable) cardiac defibrillator
CPT/HCPCS: 33225; 33249; 36415; 71045; 75820; 78452; 80048; 80053; 80162; 80305; 80320; 81003; 82962; 83036; 83735; 83880; 84439; 84443; 84481; 84484; 85025; 85027; 85049; 86147; 86705; 86709; 86803; 86850; 86900; 87340; 87426; 93005; 93017; 93306; 93451; 93641; 93970; 97116; 97162; 97164; 97166; 97168; 99291; A9500; C1769; C1882; C1893; C1898; C1899; C1900; J0282; J0690; J1100; J1160; J1170; J1200; J1580; J1644; J1815; J1940; J2250; J2405; J2597; J2704; J2785; J3010; J3475; J3480; J3490; J7040; J7060; P9034; Q9967; G0480

== ENCOUNTER 2022-09-18 11:50 | Emergency (ER) | payer MEDICARE, MEDICAID ==
[~2022-09-18] VITALS: Ht 172.7 cm; Wt 104.0 kg
[~2022-09-18 11:50] MED LIST changes: +ALLO100T PO; +APIX5TAB PO; +BISA10SU62 RC; +CARV6.2548 PO; +DOCU-150 PO; -FURO20TA4 MT; +FURO40TA5 PO; -HYDR-4001 MT; +HYDR-4001 PO; +HYDR-4134 PO; -IBUP-2029 PO; +INDO50CA98 PO; +ISOS30TA91 PO; +METF-416 PO; +MOM PO; +POTA-189 PO; +PROT40 PO; -PROVENTIL; +TERA10CA4 PO; +TOPUD PO; +TRAM50TA3 PO
[2022-09-18 14:46] LABS: CHLORIDE 109 mEq/L (98-107)
[2022-09-18 15:11] LABS: BASOPHILS % 0.8 % (0.0-2.0); EOSINOPHILS % 1.8 % (0.0-5.0); HEMATOCRIT. 27.9 % (42.0-52.0); HEMOGLOBIN. 8.9 g/dL (14.0-18.0); LYMPHOCYTES % 20.4 % (20.0-50.0); MEAN CORPUSCULAR HEMOGLOBIN 26.5 pg (28.0-32.0); MEAN CORPUSCULAR VOLUME 83.4 fL (80.0-94.0); MEAN PLATELET VOLUME 12.6 fl (7.4-10.4); MONOCYTES % 7.4 % (2.0-8.0); NEUTROPHILS % 69.6 % (40.0-76.0); PLATELET 63 x1000/uL (130-400); RED BLOOD CELL COUNT 3.35 mill/uL (4.7-6.1); RED CELL DISTRIBUTION WIDTH 18.8 % (11.6-14.6)
[2022-09-18 19:38] VITALS: BP 150/80
== END 2022-09-18 21:44 | disposition home or self-care (01) ==
LOC: ER 11:50
DX: R07.89 Other chest pain (principal); I11.0 Hypertensive heart disease with heart failure; I50.9 Heart failure, unspecified; E11.9 Type 2 diabetes mellitus without complications; M19.90 Unspecified osteoarthritis, unspecified site; I48.91 Unspecified atrial fibrillation; F32.A Depression, unspecified; Z95.0 Presence of cardiac pacemaker; Z79.01 Long term (current) use of anticoagulants; Z79.84 Long term (current) use of oral hypoglycemic drugs; Z79.82 Long term (current) use of aspirin; Z88.8 Allergy status to other drugs, medicaments and biological substances
CPT/HCPCS: 36415; 71045; 80053; 83880; 84484; 85025; 93005; 99285